=== PATIENT | female | born 1965 | race Caucasian/White ===

== ENCOUNTER 2025-01-13 06:28 | Inpatient (IN) | payer SELFPAY, OTHER ==
[2025-01-09 14:38] LABS: Urine Bacteria None Seen /hpf (None Seen)
[2025-01-09 14:41] LABS: Basophils # (auto) 0.1 10 ^3/uL (0-0.2); Basophils % (auto) 0.8 % (0.0-2.0); Eosinophils # (auto) 0.2 10 ^3/uL (0-0.8); Eosinophils % (auto) 2.4 % (0.0-7.0); Hematocrit 39.2 % (36.0-46.0); Hemoglobin 13.4 g/dL (12.2-16.2); Lymphocytes # (auto) 2.3 10 ^3/uL (0.4-5.4); Lymphocytes % (auto) 32.2 % (10.0-50.0); Mean Corpuscular Hemoglobin 31.1 pg (28.0-32.0); Mean Corpuscular Hgb Conc. 34.1 g/dL (32.0-36.0); Mean Corpuscular Volume 91.3 fL (80.0-100.0); Monocytes # (auto) 0.5 10 ^3/uL (0-1.3); Monocytes % (auto) 7.3 % (0.0-12.0); Neutrophils # (auto) 4.1 10 ^3/uL (1.6-8.6); Neutrophils % (auto) 57.3 % (37.0-80.0); Platelet Count (auto) 282 10^3/uL (140-450); Red Cell Distribution Width 13.1 % (11.8-14.3); White Blood Cell 7.2 10^3/uL (4.4-10.8)
[2025-01-09 14:57] LABS: INR 0.96 (0.9-1.15); Partial Thromboplastin Time 29.6 SEC (24.5-34.5); Prothrombin Time 10.2 sec (9.3-11.8)
[2025-01-09 15:00] LABS: Alanine Aminotransferase 22 U/L (7-40); Alkaline Phosphatase 65 U/L (46-116); Anion Gap 6 (5-15); Aspartate Aminotransferase 19 U/L (13-40); BUN/Creatinine Ratio 22.5 (10.0-20.0); Bilirubin, Total 0.8 mg/dL (0.2-1.0); Blood Urea Nitrogen 16 mg/dL (9-23); Calcium 10.3 mg/dL (8.7-10.4); Carbon Dioxide 29 mmol/L (20-31); Chloride 104 mmol/L (98-107); Glucose 94 mg/dL (74-106); Potassium 4.1 mmol/L (3.5-5.1); Sodium 139 mmol/L (136-145); Total Protein 7.5 g/dL (5.7-8.2)
[2025-01-09 15:05] LABS: Albumin 4.9 g/dL (3.2-4.8)
[2025-01-09 15:25] LABS: Urine Blood 1+ /uL (Negative); Urine Clarity Clear (Clear); Urine Color Yellow (Yellow); Urine Hyaline Cast FEW /lpf (0 - 2); Urine Protein, UAD Negative (Negative); Urine Specific Gravity 1.026 (1.001-1.035); Urine Squamous Epithelial Cell FEW /hpf (<5); Urine Urobilinogen Normal (Negative); Urine WBC 8 /HPF (0-5); Urine pH 6.5 (5.0-9.0)
[~2025-01-13] VITALS: Ht 162.6 cm; Wt 82.7 kg
[2025-01-13] VITALS (9 sets, daily range): BP systolic 106–115; BP diastolic 61–67; PULSE 73–83; RESP 12–18; TEMP 97.7–98.3; O2SAT 89–100
[~2025-01-13 06:28] MED LIST: AMLO1TAB23 PO; LISI40TA16 PO
[2025-01-13] MEDS ORDERED: KETOROLAC TROMETH 30 MG/ML 1ML VIAL ONE (06:52)
[2025-01-13] MEDS ORDERED: MORPHINE SULF PF 5 MG/10 ML VIAL ONE (06:52)
[2025-01-13] MEDS: PREGABALIN CAPSULE 75 MG CAP PO ONE (07:15)
[2025-01-13] MEDS: ACETAMINOPHEN IV 1000 MG/100ML (10MG/ML) IV ONE (07:15)
[2025-01-13] MEDS ORDERED: HYDROmorphone HCL 2 MG/ML VL/or syr ONE (07:16)
[2025-01-13] MEDS ORDERED: ONDANSETRON HCL 4 MG/2 ML VIAL ONE (07:16)
[2025-01-13] MEDS ORDERED: LIDOCAINE 2% (LOCAL ANESTH.) PF 5ml SDV ONE (07:16)
[2025-01-13] MEDS ORDERED: fentaNYL CITRATE 100 MCG/2 ML VL ONE ×2 (07:16→08:30)
[2025-01-13] MEDS ORDERED: DexAMETHasone SOD PHOS 10MG/1ML VIAL INJ ONE (07:16)
[2025-01-13] MEDS ORDERED: MIDAZOLAM HCL 2MG/2ML 2ml VIAL (1mg/ml) ONE (07:16)
[2025-01-13] MEDS ORDERED: KETAMINE 50mg/ML 1ml syringe ONE (07:16)
[2025-01-13] MEDS ORDERED: GLYCOPYRROLATE 0.2 MG/ML 1ML VIAL ONE (07:16)
[2025-01-13] MEDS ORDERED: ONDANSETRON HCL 4 MG/2 ML VIAL IV PRN (08:00)
[2025-01-13] MEDS ORDERED: ceFAZolin 1GM/50ML 50 ML IV SCH (08:00)
[2025-01-13] MEDS ORDERED: NITROGLYCERIN 0.4 MG SL TAB SL PRN (08:00)
[2025-01-13] MEDS ORDERED: HYDROmorphone HCL 2 MG/ML VL/or syr IV PRN (08:00)
[2025-01-13] MEDS ORDERED: ACETAMINOPHEN 325 MG TAB PO PRN (08:00)
[2025-01-13] MEDS ORDERED: MORPHINE SULFATE INJ 2 MG/ml SYRG IV PRN (08:00)
[2025-01-13] MEDS: ONDANSETRON HCL 4 MG/2 ML VIAL IV ONE (09:15)
[2025-01-13] MEDS: TRANEXAMIC ACID 20 ML ONE (09:28)
[2025-01-13] MEDS: BUPIVACAINE W/ EPINEPH 0.5% INJ 50ML MDV IJ ONE (09:28)
[2025-01-13] MEDS: CELECOXIB 100 MG CAP PO ONE (09:28)
[2025-01-13] MEDS: VANCOMYCIN HCL 1000 MG VL ONE (09:28)
[2025-01-13] MEDS: ceFAZolin 2 GM/D5W50ml 50 ML IV ONE (09:29)
[2025-01-13] MEDS: HYDROmorphone HCL 2 MG/ML VL/or syr IV PRN (09:35)
[2025-01-13] MEDS: LACTATED RINGER'S 1,000 ML IV SCH (09:38)
[2025-01-13] MEDS: amLODIPine BESYLATE 5 MG TAB PO SCH (09:54)
[2025-01-13] MEDS: LISINOPRIL 20 MG TAB PO SCH (09:55)
[2025-01-13] MEDS: DOCUSATE SOD 100 MG CAP PO SCH (11:25)
[2025-01-13] MEDS: CEFEPIME 1GM/ 50ML 50 ML IV SCH (11:25)
[2025-01-13] MEDS: HYDROcodone-ACET 5/325MG TAB PO PRN (11:33)
--- NOTE | 2025-01-13 12:29 | DVH ---
Indication: sp Right DIEGO Technique: Single-view pelvis Comparison: None FINDINGS/IMPRESSION: Total right hip arthroplasty in anatomic alignment. 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 Exp ected postoperative changes surrounding the right hip joint including soft tissue emphysema, edema.
--- NOTE | 2025-01-13 12:44 | DVHHP2 ---
Review of Systems Allergies: Coded Allergies: NO KNOWN ALLERGIES (Unverified , 07/06/16) Medications Current Medications Medications Dose Ordered Sig/Abdelrahman Route Start Time Stop Time Status Last Admin Dose Admin Patient Own Medication 10 mg QPM PO 01/13/25 18:00 UNV Patient Own Medication 40 mg QAM PO 01/14/25 07:00 UNV Cefepime HCl 50 ml @ 12.5 mls/hr DAILY IV 01/13/25 10:00 01/13/25 11:25 12.5 MLS/HR Lactated Ringer's 1,000 ml @ 100 mls/hr Q10H IV 01/13/25 08:00 01/13/25 09:38 100 MLS/HR Sodium Chloride 10 ml Q8HR IV 01/13/25 14:00 Acetaminophen 650 mg Q6HP PRN PO 01/13/25 08:00 Acetaminophen/ Hydrocodone Bitart 1 tab Q4HP PRN PO 01/13/25 08:00 01/13/25 11:33 1 TAB Hydromorphone HCl 1 mg Q2HP PRN IV 01/13/25 08:00 Ondansetron HCl 4 mg Q6HP PRN IV 01/13/25 08:00 Docusate Sodium 100 mg Q12HR PO 01/13/25 10:00 01/13/25 11:25 100 MG Nitroglycerin 0.4 mg Q5MINP PRN SL 01/13/25 08:00 Morphine Sulfate 2 mg Q30M PRN IV 01/13/25 08:00 Amlodipine Besylate 10 mg DAILY PO 01/13/25 10:00 Lisinopril 40 mg DAILY PO 01/13/25 10:00 Cefazolin Sodium 50 ml @ 50 mls/hr Q6H IV 01/13/25 14:00 01/14/25 02:59 Exam Vital Signs Vital Signs Date Time Temp Pulse Resp B/P (MAP) Pulse Ox O2 Delivery O2 Flow Rate FiO2 01/13/25 11:53 67 12 100/64 (76) 99 01/13/25 09:35 Nasal Cannula 2.0 99 01/13/25 09:08 97.1 97.1 Labs/Xrays Labs Test 01/09/25 14:30 Range/Units White Blood Count 7.2 4.4-10.8 10^3/uL Red Blood Count 4.30 4.0-5.20 10^6/uL Hemoglobin 13.4 12.2-16.2 g/dL Hematocrit 39.2 36.0-46.0 % Mean Corpuscular Volume 91.3 80.0-100.0 fL Mean Corpuscular Hemoglobin 31.1 28.0-32.0 pg Mean Corpuscular Hemoglobin Concent 34.1 32.0-36.0 g/dL Red Cell Distribution Width 13.1 11.8-14.3 % Platelet Count 282 140-450 10^3/uL Mean Platelet Volume 8.1 6.9-10.8 fL Neutrophils (%) (Auto) 57.3 37.0-80.0 % Lymphocytes (%) (Auto) 32.2 10.0-50.0 % Monocytes (%) (Auto) 7.3 0.0-12.0 % Eosinophils (%) (Auto) 2.4 0.0-7.0 % Basophils (%) (Auto) 0.8 0.0-2.0 % Neutrophils # (Auto) 4.1 1.6-8.6 10 ^3/uL Lymphocytes # (Auto) 2.3 0.4-5.4 10 ^3/uL Monocytes # (Auto) 0.5 0-1.3 10 ^3/uL Eosinophils # (Auto) 0.2 0-0.8 10 ^3/uL Basophils # (Auto) 0.1 0-0.2 10 ^3/uL Nucleated Red Blood Cells 0.0 % Prothrombin Time 10.2 9.3-11.8 sec Prothrombin Time INR 0.96 0.9-1.15 Activated Partial Thromboplast Time 29.6 24.5-34.5 SEC Urine Color Yellow Yellow Urine Clarity Clear Clear Urine pH 6.5 5.0-9.0 Urine Specific [place] 1.026 1.001-1.035 Urine Protein Negative Negative Urine Ketones Negative Negative Urine Blood 1+ H Negative /uL Urine Nitrite Negative Negative Urine Bilirubin Negative Negative Urine Urobilinogen Normal Negative mg/dL Urine Leukocyte Esterase 1+ Negative /uL Urine RBC 9 0 - 4 /hpf Urine Microscopic WBC 8 H 0-5 /HPF Urine Squamous Epithelial Cells Few <5 /hpf Urine Bacteria None seen None Seen /hpf Urine Hyaline Casts Few 0 - 2 /lpf Urine Glucose Normal Normal mg/dL Sodium Level 139 136-145 mmol/L Potassium Level 4.1 3.5-5.1 mmol/L Chloride Level 104 98-107 mmol/L Carbon Dioxide Level 29 20-31 mmol/L Anion Gap 6 5-15 Blood Urea Nitrogen 16 9-23 mg/dL Creatinine 0.71 0.550-1.02 mg/dL Glomerular Filtration Rate Calc 96 >90 mL/min BUN/Creatinine Ratio 22.5 H 10.0-20.0 Serum Glucose 94 74-106 mg/dL Calcium Level 10.3 8.7-10.4 mg/dL Total Bilirubin 0.8 0.2-1.0 mg/dL Aspartate Amino Transferase (AST) 19 13-40 U/L Alanine Aminotransferase (ALT) 22 7-40 U/L Alkaline Phosphatase 65 46-116 U/L Total Protein 7.5 5.7-8.2 g/dL Albumin 4.9 H 3.2-4.8 g/dL Assessment/Plan Assessment/Plan see dictated note Plan discussed with: Patient My Orders Orders - CAR MAGALLON MD Procedure Category Date Status Time Hydromorphone PHA 01/13/25 Verified Injection (Dilaudid 12:45 Complete Blood Count LAB 01/14/25 Verified 06:00 Comprehensive LAB 01/14/25 Verified Metabolic Panel 06:00 Date of Service: January 13, 2025 Billing Provider: CAR MAGALLON MD Common Visit Codes: [id number] INP/OBS CARE (HIGH) CAR MAGALLON MD January 13, 2025 12:44
--- NOTE | 2025-01-13 13:40 | DVHHP ---
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 The patient at this time denies any significant pain. No chest pain. No shortness of breath. No nausea or vomiting. REVIEW OF SYSTEMS: Otherwise negative. PAST MEDICAL HISTORY: Significant for hypertension. MEDICATIONS: She takes lisinopril and amlodipine. ALLERGIES: No known drug allergies. SOCIAL HISTORY: Denies smoking or alcohol. Lives at home with her fiance. FAMILY HISTORY: Negative. PHYSICAL EXAMINATION: GENERAL: The patient is awake and alert. VITAL SIGNS: Temperature of 97.1, pulse 81 per minute, blood pressure 100/64. SHEENT: Unremarkable. There is no JVD. No pedal edema. LUNGS: Equal bilaterally. No added sounds. CARDIOVASCULAR: S1, S2 is regular. No murmurs. ABDOMEN: Soft. There is no organomegaly. NEUROLOGIC: Nonfocal. MUSCULOSKELETAL: There is a dressing at the site of the right hip surgery. ASSESSMENT AND PLAN: * Hypertension for which the patient's blood pressure medications will be held and blood pressure will be monitored. * Status post right hip surgery for DJD of the hip. The patient will be placed on pain medication and receive physical therapy. MD YONATAN Jack/TJ TID: [id number] RECEIPT: [id number]
[2025-01-13] MEDS: SODIUM CHLOR 0.9% PF (SALINE LOCK) 10ML VIAL/SYR IV SCH (14:38)
[2025-01-13] MEDS: ceFAZolin 1GM/50ML 50 ML IV SCH (14:38)
[2025-01-13] MEDS ORDERED: PATIENTS OWN MEDICATION (Amlodipine Besylate 10 MG) PO SCH (18:00)
[2025-01-14] VITALS (8 sets, daily range): BP systolic 98–127; BP diastolic 59–71; PULSE 53–89; RESP 16–20; TEMP 97.6–98.4; O2SAT 91–98
[2025-01-14] MEDS: HYDROmorphone HCL 2 MG/ML VL/or syr IV PRN (04:20)
[2025-01-14 06:41] LABS: Basophils # (auto) 0 10 ^3/uL (0-0.2); Basophils % (auto) 0.3 % (0.0-2.0); Eosinophils # (auto) 0 10 ^3/uL (0-0.8); Eosinophils % (auto) 0.4 % (0.0-7.0); Hematocrit 28.2 % (36.0-46.0); Hemoglobin 9.7 g/dL (12.2-16.2); Lymphocytes # (auto) 1.6 10 ^3/uL (0.4-5.4); Lymphocytes % (auto) 22.5 % (10.0-50.0); Mean Corpuscular Hemoglobin 31.6 pg (28.0-32.0); Mean Corpuscular Hgb Conc. 34.4 g/dL (32.0-36.0); Monocytes # (auto) 0.7 10 ^3/uL (0-1.3); Monocytes % (auto) 9.8 % (0.0-12.0); Neutrophils # (auto) 4.6 10 ^3/uL (1.6-8.6); Platelet Count (auto) 222 10^3/uL (140-450); Red Blood Cells 3.06 10^6/uL (4.0-5.20); Red Cell Distribution Width 13.1 % (11.8-14.3); White Blood Cell 6.9 10^3/uL (4.4-10.8)
[2025-01-14 06:59] LABS: Alanine Aminotransferase 35 U/L (7-40); Albumin 3.6 g/dL (3.2-4.8); Alkaline Phosphatase 52 U/L (46-116); Anion Gap 7 (5-15); Aspartate Aminotransferase 33 U/L (13-40); BUN/Creatinine Ratio 27.3 (10.0-20.0); Blood Urea Nitrogen 15 mg/dL (9-23); Carbon Dioxide 28 mmol/L (20-31); Chloride 107 mmol/L (98-107); Potassium 4.2 mmol/L (3.5-5.1); Sodium 142 mmol/L (136-145)
[2025-01-14 07:00] LABS: Bilirubin, Total 0.6 mg/dL (0.2-1.0)
[2025-01-14] MEDS ORDERED: PATIENTS OWN MEDICATION (Lisinopril 40 MG) PO SCH (07:00)
--- NOTE | 2025-01-14 07:01 | DVHOP2 ---
Operative Report - 2 Report Details Date: 01/13/25 Preop Diagnosis: Right hip osteoarthritis Postop Diagnosis: Right hip osteoarthritis Surgeon: Jb Macias DO/ Israel Ayala MD Washer Engineer: Trung MORALES Anesthesiologist: Von MITTAL Anesthesia: Regional Implant: [place] G7 50 mm cup three screws DUal mobilitiy 40 mm Head 28/0 M/L Taper 7.5 extended offset stem Consent: The patient was informed of the risks and benefits of the procedure. These include but are not limited to complications of anesthesia, postoperative infection, incomplete relief of symptoms, recurrence of symptoms, damage to blood vessels, nerves and tendons, deep venous thrombosis, pulmonary embolism and possible need for repeat surgery in the future. Estimated Blood Loss: 300 cc Indications for Surgery: end stage right hip osteoarthritis Name of Procedure Performed Right total hip arthroplasty Procedure Details Procedure Details: INDICATION: This patient has failed non-operative treatments for hip arthritis and is now indicated for a total hip replacement. Preoperatively in the waiting area as well as in the office, I had a long discussion with the patient regarding the plan, the expected outcome, the risks, benefits, and alternatives of surgery. The risks include, but are not limited to, infection (which may require future surgery and removal of implants) , bleeding (which may require a transfusion), damage to nerves, arteries, veins, tendons, muscles and other adjacent structures. Also discussed the possibilities of dislocation, leg-length discrepancy, intraoperative fractures, implant loosening, heterotopic bone formation, and revision for variety of reasons, and medical complications etc. This was discussed at length and consent has been obtained. DESCRIPTION OF PROCEDURE: In the preoperative holding area, the consent was reviewed and the a ppropriate extremity was verified by the patient and marked with my initials. The patient was then transferred to the operating theatre. Appropriate anesthetia was induced. All bony prominences were well padded. A time out was performed verifying the side and site of surgery according to standard protocol. Preoperative antibiotics were given. Tranexamic acid was given. The patient was then placed in the lateral decubitus position and fixed with rigid pelvic fixation. All bony prominences were well padded and an axillary roll was placed. The affected hip area was then prepped and draped in the usual sterile fashion. We made a standard posterolateral incision sharply through the skin and carried our dissection down through subcutaneous tissue to the underlying fascia achieving hemostasis where necessary. We incised the fascia in line with our incision. We identified and protected the sciatic nerve. We took down the external rotators and hip capsule from their insertion into the greater trochanter, tagged them and retracted them posteriorly for further protection of the sciatic nerve. A check point was placed into the greater trochanter and the hip center and leg length length were registered. We then dislocated the femoral head and performed an osteotomy of the femoral neck in accordance with our pre-operative plan. The labrum was excised with a long-handle knife, and we exposed the acetabular rim and cotyloid fossa. We then reamed up to our final size in accordance with the preoperative plan. We copiously irrigated and then impacted the final cup into position. We confirmed the position with the robotic navigation guidance. We placed two acetabular dome screws into the posterior-superior quadrant in the usual fashion. We irrigated the cup and impacted the liner, checking to make sure it was well seated. Attention was then turned to the femur. We used a box osteotome followed by a canal finder to gain entry to the canal. Intramedullary contents were suctioned and care was taken to ensure they did not touch the tissues. We sequentially reamed until good cortical contact, then broached up to out final size. We trialed with the appropriate femoral neck and head and reduced the hip. The hip was taken through a full range of motion. The hip soft tissues were examined in extension and external rotation, the anterior capsule and IT band were palpated, and combined anteversion was determined to be 40 degrees. The hip was stable at maximum flexion, at 90 degrees of flexion and 45 degrees of internal rotation and the position of sleep. Leg lengths were restored as shown using the computer navigation, and the trial LTC matched preoperative and intraoperative templating. The hip was then dislocated and trial components removed. We copiously irrigated the wound and impacted the final femoral stem into position. The femoral head was impacted onto a clean and dry trunion and confirmed to be seated. The hip was reduced ensuring to tissues in the acetabular cup. We again brought it through a full functional range of motion and there was no evidence for dislocation, instability, or impingement. The checkpoint was removed. A dilute betadine solution (17.5mL in 500mL saline) was used to wash the joint and left to sit for 3 minutes. This was then irrigated out with copious amounts of pulse lavage. We sprinkled 1g vancomycin powder below the fascia and 1g above the fascia. We copiously irrigated the wound and soft tissues. The short external rotators and capsule were repaired to the greater trochanter through dr ill holes, and the quadratus was repaired. We palpated the sciatic nerve in continuity without tension. The fascia was closed with vicryl and a barbed suture. We closed over the fascia with vicryl suture and re-approximated the skin with monocryl. A sterile dressing was placed. We returned the patient to the supine position. We verified all lower extremity compartments were soft and compressible and that we had intact distal pulses and checked our leg length religious. We took an AP Pelvis in the operating room, which we reviewed prior to transfer. The patient was then transferred to the recovery room in stable condition. Condition Good Disposition Still a Patient ISRAEL AYALA MD January 14, 2025 07:01
[2025-01-14 07:06] LABS: Calcium 8.5 mg/dL (8.7-10.4); Glucose 110 mg/dL (74-106); Total Protein 5.3 g/dL (5.7-8.2)
--- NOTE | 2025-01-14 07:56 | DVHPN2 ---
Progress Note Date Seen: January 14, 2025 Medical Necessity Reason Pt with a Central, PICC or Fol: No Subjective Patient reports: No new complaints Objective vital signs Vital Sign Date Time Temp Pulse Resp B/P (MAP) Pulse Ox O2 Delivery O2 Flow Rate FiO2 01/14/25 05:00 98.0 66 18 123/66 (85) 98 98.0 01/13/25 20:00 Room Air* 0 21 Total Intake and Output 01/13/25 01/13/25 01/14/25 15:00 23:00 07:00 Intake Total 390 ml 600 ml Balance 390 ml 600 ml medications Current Medications Medications Dose Ordered Sig/Abdelrahman Route Start Time Stop Time Status Last Admin Dose Admin Patient Own Medication 10 mg QPM PO 01/13/25 18:00 UNV Patient Own Medication 40 mg QAM PO 01/14/25 07:00 UNV Cefepime HCl 50 ml @ 12.5 mls/hr DAILY IV 01/13/25 10:00 01/13/25 11:25 12.5 MLS/HR Lactated Ringer's 1,000 ml @ 100 mls/hr Q10H IV 01/13/25 08:00 01/14/25 04:21 100 MLS/HR Sodium Chloride 10 ml Q8HR IV 01/13/25 14:00 01/14/25 05:22 10 ML Acetaminophen 650 mg Q6HP PRN PO 01/13/25 08:00 Acetaminophen/ Hydrocodone Bitart 1 tab Q4HP PRN PO 01/13/25 08:00 01/13/25 20:36 1 TAB Ondansetron HCl 4 mg Q6HP PRN IV 01/13/25 08:00 Docusate Sodium 100 mg Q12HR PO 01/13/25 10:00 01/13/25 22:24 100 MG Nitroglycerin 0.4 mg Q5MINP PRN SL 01/13/25 08:00 Morphine Sulfate 2 mg Q30M PRN IV 01/13/25 08:00 Hydromorphone HCl 1 mg Q3HP PRN IV 01/13/25 12:45 01/14/25 04:20 1 MG Examination: GENERAL:Normal, MSK:Abnormal laboratory and microbiology Laboratory Tests 01/14/25 04:46 Test 01/14/25 04:46 Range/Units Serum Glucose 110 H 74-106 mg/dL Problem List/Assessment/Plan Problem List/Assessment/Plan 60 year old female who is s/p Right DIEGO POD 1 1. Pain control 2. WBAT RLE 3. Physical therapy with posterior hip precautions 4. DVT ppx 5. Discussed discharge planning likely for tomorrow Plan discussed with: Patient Date of Service: January 14, 2025 Billing Provider: DANIELA AYALA MD Common Visit Codes: NOT BILLABLE VIKTORIA PIERCE NP January 14, 2025 07:56
--- NOTE | 2025-01-14 11:04 | DVHPN2 ---
Progress Note Date Seen: January 14, 2025 Medical Necessity Reason Pt with a Central, PICC or Fol: No Subjective Patient reports: No new complaints Review of Systems: HEENT:Normal, CVS:Normal, RESPIRATORY:Normal, GI:Normal, :Normal, MSK:Normal, NEURO:Normal Objective vital signs Vital Sign Date Time Temp Pulse Resp B/P (MAP) Pulse Ox O2 Delivery O2 Flow Rate FiO2 01/14/25 10:12 68 18 126/72 01/14/25 09:25 97.9 98 97.9 01/14/25 08:00 Room Air* 0 21 Total Intake and Output 01/13/25 01/13/25 01/14/25 15:00 23:00 07:00 Intake Total 390 ml 600 ml Balance 390 ml 600 ml medications Current Medications Medications Dose Ordered Sig/Abdelrahman Route Start Time Stop Time Status Last Admin Dose Admin Patient Own Medication 10 mg QPM PO 01/13/25 18:00 UNV Patient Own Medication 40 mg QAM PO 01/14/25 07:00 UNV Cefepime HCl 50 ml @ 12.5 mls/hr DAILY IV 01/13/25 10:00 01/14/25 08:44 12.5 MLS/HR Lactated Ringer's 1,000 ml @ 100 mls/hr Q10H IV 01/13/25 08:00 01/14/25 04:21 100 MLS/HR Sodium Chloride 10 ml Q8HR IV 01/13/25 14:00 01/14/25 05:22 10 ML Acetaminophen 650 mg Q6HP PRN PO 01/13/25 08:00 Acetaminophen/ Hydrocodone Bitart 1 tab Q4HP PRN PO 01/13/25 08:00 01/14/25 08:44 1 TAB Ondansetron HCl 4 mg Q6HP PRN IV 01/13/25 08:00 Docusate Sodium 100 mg Q12HR PO 01/13/25 10:00 01/14/25 08:44 100 MG Nitroglycerin 0.4 mg Q5MINP PRN SL 01/13/25 08:00 Morphine Sulfate 2 mg Q30M PRN IV 01/13/25 08:00 Hydromorphone HCl 1 mg Q3HP PRN IV 01/13/25 12:45 01/14/25 10:12 1 MG Examination: GENERAL:Normal, HEENT:Normal, NECK:Normal, LUNGS:Normal, CVS:Normal, ABDOMEN:Normal, MSK:Normal, MSK:Abnormal (right hip dressing), SKIN:Normal, NEURO:Normal, :Normal laboratory and microbiology Laboratory Tests 01/14/25 04:46 Test 01/14/25 04:46 Range/Units Serum Glucose 110 H 74-106 mg/dL Problem List/Assessment/Plan Problem List/Assessment/Plan * Hypertension for which the patient's blood pressure medications will be held and blood pressure will be monitored. * anemia * Status post right hip surgery for DJD of the hip. The patient will be placed on pain medication and receive physical therapy. advance care planning- full code- time spent 18mins Plan discussed with: Patient My Orders My Orders Orders - CAR MAGALOLN MD Procedure Category Date Status Time Hydromorphone PHA 01/13/25 In Process Injection (Dilaudid 12:45 Date of Service: January 14, 2025 Billing Provider: CAR MAGALLON MD Common Visit Codes: [id number] INP/OBS CARE(HIGH) Secondary Visit Codes: [id number] CARE PLAN 30 MINUTES CAR MAGALLON MD January 14, 2025 11:04
--- NOTE | 2025-01-14 19:48 | DVH ---
XY R HIP COMPLETE XRAY, 01/14/2025 at 7:04 p.m. INDICATION: POST OP HIP REPLACEMENT AND PT HEARD POPPING SOUND TECHNICAL DATA: Frontal and frog lateral views were obtained of the right hip.] COMPARISON: None FINDINGS: Right hip arthroplasty which appears to be anatomical position. No right hip fracture is identified. The right sacroiliac joint appears normal. The left hip joint appears normal. IMPRESSION: 1. No acute fracture or dislocation 2. Right hip arthroplasty which appears in anatomical position.
[2025-01-15] VITALS (7 sets, daily range): BP systolic 110–133; BP diastolic 62–66; PULSE 78–90; RESP 16–19; TEMP 97.7–98.6; O2SAT 91–97
[2025-01-15 07:30] LABS: Hematocrit 27.8 % (36.0-46.0); Hemoglobin 9.5 g/dL (12.2-16.2)
--- NOTE | 2025-01-15 08:13 | DVHPN2 ---
Progress Note Date Seen: January 15, 2025 Medical Necessity Reason Pt with a Central, PICC or Fol: No Subjective Patient reports: No new complaints Objective vital signs Vital Sign Date Time Temp Pulse Resp B/P (MAP) Pulse Ox O2 Delivery O2 Flow Rate FiO2 01/15/25 05:00 98.3 90 18 118/62 (80) 92 98.3 01/14/25 20:00 Room Air* 0 21 Total Intake and Output 01/14/25 01/14/25 01/15/25 15:00 23:00 07:00 Intake Total 500 ml Balance 500 ml medications Current Medications Medications Dose Ordered Sig/Abdelrahman Route Start Time Stop Time Status Last Admin Dose Admin Patient Own Medication 10 mg QPM PO 01/13/25 18:00 UNV Patient Own Medication 40 mg QAM PO 01/14/25 07:00 UNV Cefepime HCl 50 ml @ 12.5 mls/hr DAILY IV 01/13/25 10:00 01/14/25 08:44 12.5 MLS/HR Lactated Ringer's 1,000 ml @ 100 mls/hr Q10H IV 01/13/25 08:00 01/14/25 13:29 100 MLS/HR Sodium Chloride 10 ml Q8HR IV 01/13/25 14:00 01/15/25 06:09 10 ML Acetaminophen 650 mg Q6HP PRN PO 01/13/25 08:00 Acetaminophen/ Hydrocodone Bitart 1 tab Q4HP PRN PO 01/13/25 08:00 01/15/25 07:51 1 TAB Ondansetron HCl 4 mg Q6HP PRN IV 01/13/25 08:00 Docusate Sodium 100 mg Q12HR PO 01/13/25 10:00 01/14/25 21:48 100 MG Nitroglycerin 0.4 mg Q5MINP PRN SL 01/13/25 08:00 Morphine Sulfate 2 mg Q30M PRN IV 01/13/25 08:00 Hydromorphone HCl 1 mg Q3HP PRN IV 01/13/25 12:45 01/15/25 03:36 1 MG Examination: GENERAL:Normal, MSK:Abnormal laboratory and microbiology Laboratory Tests 01/15/25 06:50 01/14/25 04:46 Test 01/14/25 04:46 Range/Units Serum Glucose 110 H 74-106 mg/dL Problem List/Assessment/Plan Problem List/Assessment/Plan 60 year old female who is s/p Right DIEGO POD 1 1. Pain control 2. WBAT RLE 3. Physical therapy with posterior hip precautions 4. DVT ppx 5. Discussed discharge planning for SNF as patient is going to require additional PT and assistance, clear for discharge from orthopedic standpoint with the following recommendations 6. follow up at [facility] ortho clinic in 2 weeks POSTOPERATIVE Posterior Total Hip INSTRUCTIONS Activity: 1. You can bear as much weight as you tolerate on your hip unless specifically instructed otherwise. You may use the walking aid which you were discharged with and switch to a cane whenever you feel comfortable doing so. You should use an assistive device until you can walk comfortably without it. Keep in mind that every patient moves at their own speed of recovery so take your time. 2. A physical therapist will visit you at home. 3. Although guarantees against a dislocation do not exist, the hip was noted to be sufficiently stable in surgery. Below are motions that you should dischargenot do for 4-6 weeks, depending on the surgical approach used. If there are questions, please call the office. a. Bend forward past 90 degrees b. Sit on a regular low chair, couch, car seat etc... c. Cross your legs d. Use a regular low toilet seat. e. Sleep on your stomach or on either side. 3. High impact activity such as jumping, aerobics, tennis, and skiing are not permitted during the first 3 months after surgery. These activities can contribute to accelerated wear and should be done with caution after this time. Discuss this with your surgeon if you have questions. 4. Although a bath or whirlpool is NOT permitted during the first 2-3 weeks, you may shower as soon as you get home from the hospital provided you are able to keep your bandage clean and dry and there is no wound drainage. If you are unable to place a secured covering over your bandage bed bath/sponge bath may likely be the more appropriate option. 5. Swimming is not permitted until the wound is healed, which typically occurs approximately 3-4 weeks after surgery. Wound Management: If the wound is draining please change the gauze pad on the wound until it stops. If drainage persists past 10 days please notify our office. If there is a sticky gel dressing over your wound, you may leave this in place for as long as it is clean and dry. If it becomes loose or causes skin irritation, it is OK to remove it and place clean gauze over your wound. 1. You might notice some bruising around the surgical site, this is normal. 2. Check your temperature on a daily basis. Please note that a low-grade temp below 101 is not uncommon after surgery especially during the first 3 days. Notify the office if your temperature spikes above 101.5 after the 3rd post- operative date. 3. Many patients experience significant swelling in the thigh, this may extend below the knee and sometimes to the ankle. Swelling increases during the first week and subsides during the following week. 4. Provided you have been on a blood thinner since surgery and have been up and about at least three times per day, the risk of a blood clot is low and this swelling is an expected part of recovery. It will largely or completely resolve by your first post-operative visit. 5. Steven, if present, will be removed at 2 weeks during initial post-op visit. Medications: 1. You will be discharged with pain medication, Aspirin as a blood thinner and sometimes an anti-inflammatory medication such as Celebrex or Mobic might be prescribed. Please follow the instructions regarding these medicines as provided by your nurse at the hospital. 2. Narcotic pain medication has side effects, including constipation. Please ensure you continue to take stool softeners (Colace, Senna) while taking your pain medication to help protect against constipation. Getting up and moving around at least a few times per day helps with this also. 3. Lovenox 40 Sq x 12 days followed by one regular strength 325 mg coated aspirin daily for 4 weeks after surgery. Then, take one baby aspirin, 81 mg daily for 6 weeks more. A major, yet preventable, complication of Orthopaedic Surgery is a blood clot (DVT). It is important not to miss any doses of this important medication. 4. You should restart all of your prescription medications once discharged unless specifically instructed otherwise. 5. Herbal supplements may be restarted 2 weeks after surgery. Miscellaneous issues: 1. Driving is not permitted within the first 2 weeks. 2. Your first postoperative visit will take place 2weeks after discharge. Please call the office to arrange this appointment. 3. Antibiotic preventative treatment is required before dental or other invasive procedures. Please ask your surgeon about this at your first postoperative visit. Your hip replacement contains metal which may activate metal detectors. You may wish to carry a letter from your surgeon to communicate this to security personnel. If you experience chest pain, shortness of breath or severe painful calf swelling, go to the nearest emergency room to be evaluated. Please call our office once your situation is stabilized. Plan discussed with: Patient Date of Service: January 15, 2025 Billing Provider: DANIELA AYALA MD Common Visit Codes: NOT BILLABLE VIKTORIA PIERCE NP January 15, 2025 08:13
--- NOTE | 2025-01-15 10:53 | DVHPN2 ---
Progress Note Date Seen: January 15, 2025 Medical Necessity Reason Pt with a Central, PICC or Fol: No Subjective Patient reports: No new complaints Review of Systems: HEENT:Normal, CVS:Normal, RESPIRATORY:Normal, GI:Normal, :Normal, MSK:Normal, NEURO:Normal Objective vital signs Vital Sign Date Time Temp Pulse Resp B/P (MAP) Pulse Ox O2 Delivery O2 Flow Rate FiO2 01/15/25 09:45 88 16 114/62 01/15/25 09:01 98.6 94 98.6 01/15/25 08:00 Room Air* 0 21 Total Intake and Output 01/14/25 01/14/25 01/15/25 15:00 23:00 07:00 Intake Total 500 ml Balance 500 ml medications Current Medications Medications Dose Ordered Sig/Abdelrahman Route Start Time Stop Time Status Last Admin Dose Admin Patient Own Medication 10 mg QPM PO 01/13/25 18:00 UNV Patient Own Medication 40 mg QAM PO 01/14/25 07:00 UNV Cefepime HCl 50 ml @ 12.5 mls/hr DAILY IV 01/13/25 10:00 01/15/25 09:13 12.5 MLS/HR Lactated Ringer's 1,000 ml @ 100 mls/hr Q10H IV 01/13/25 08:00 01/14/25 13:29 100 MLS/HR Sodium Chloride 10 ml Q8HR IV 01/13/25 14:00 01/15/25 06:09 10 ML Acetaminophen 650 mg Q6HP PRN PO 01/13/25 08:00 Acetaminophen/ Hydrocodone Bitart 1 tab Q4HP PRN PO 01/13/25 08:00 01/15/25 07:51 1 TAB Ondansetron HCl 4 mg Q6HP PRN IV 01/13/25 08:00 Docusate Sodium 100 mg Q12HR PO 01/13/25 10:00 01/15/25 09:13 100 MG Nitroglycerin 0.4 mg Q5MINP PRN SL 01/13/25 08:00 Morphine Sulfate 2 mg Q30M PRN IV 01/13/25 08:00 Hydromorphone HCl 1 mg Q3HP PRN IV 01/13/25 12:45 01/15/25 09:15 1 MG Examination: GENERAL:Normal, HEENT:Normal, NECK:Normal, LUNGS:Normal, CVS:Normal, ABDOMEN:Normal, MSK:Normal, MSK:Abnormal (right hip dressing), SKIN:Normal, NEURO:Normal, :Normal laboratory and microbiology Laboratory Tests 01/15/25 06:50 01/14/25 04:46 Test 01/14/25 04:46 Range/Units Serum Glucose 110 H 74-106 mg/dL Problem List/Assessment/Plan Problem List/Assessment/Plan * Hypertension for which the patient's blood pressure medications will be held and blood pressure will be monitored. * anemia * Status post right hip surgery for DJD of the hip. The patient will be placed on pain medication and receive physical therapy. advance care planning- full code- time spent 18mins Plan discussed with: Patient My Orders My Orders Orders - CAR MAGALLON MD Procedure Category Date Status Time Lactated Ringers 1000 PHA 01/15/25 Verified mL 11:00 * Compressed Yeast Supervisor CONS 01/15/25 Verified Consult Date of Service: January 15, 2025 Billing Provider: CAR MAGALLON MD Common Visit Codes: [id number] INP/OBS CARE(HIGH) CAR MAGALLON MD January 15, 2025 10:53
[2025-01-15] MEDS ORDERED: LACTATED RINGER'S 1,000 ML IV SCH (11:00)
[2025-01-15] MEDS: HYDROmorphone HCL 2 MG/ML VL/or syr IV PRN (16:09)
[2025-01-16 01:00] VITALS: BP 136/73; PULSE 80; RESP 18; TEMP 98.7; O2SAT 96
[2025-01-16 05:00] VITALS: BP 115/69; PULSE 81; RESP 16; TEMP 98.7; O2SAT 95
[2025-01-16 07:08] LABS: Hematocrit 25.9 % (36.0-46.0); Hemoglobin 8.9 g/dL (12.2-16.2)
[2025-01-16 08:00] VITALS: RESP 16
[2025-01-16 08:40] VITALS: BP 120/68; PULSE 80; RESP 18; TEMP 98.6; O2SAT 97
[2025-01-16 12:30] VITALS: BP 154/89; PULSE 78; RESP 17; TEMP 98.5; O2SAT 100
--- NOTE | 2025-01-16 15:00 | DVHDS2 ---
Discharge Summary Date of Admission January 13, 2025 at 07:58 Date of Discharge: January 16, 2025 Labs/Diagnostic Data: Laboratory Results Test 01/16/25 06:32 01/14/25 04:46 01/09/25 14:30 Hemoglobin 8.9 g/dL (12.2-16.2) Hematocrit 25.9 % (36.0-46.0) White Blood Count 6.9 10^3/uL (4.4-10.8) Red Blood Count 3.06 10^6/uL (4.0-5.20) Mean Corpuscular Volume 92.0 fL (80.0-100.0) Mean Corpuscular Hemoglobin 31.6 pg (28.0-32.0) Mean Corpuscular Hemoglobin Concent 34.4 g/dL (32.0-36.0) Red Cell Distribution Width 13.1 % (11.8-14.3) Platelet Count 222 10^3/uL (140-450) Mean Platelet Volume 8.5 fL (6.9-10.8) Neutrophils (%) (Auto) 67.0 % (37.0-80.0) Lymphocytes (%) (Auto) 22.5 % (10.0-50.0) Monocytes (%) (Auto) 9.8 % (0.0-12.0) Eosinophils (%) (Auto) 0.4 % (0.0-7.0) Basophils (%) (Auto) 0.3 % (0.0-2.0) Neutrophils # (Auto) 4.6 10 ^3/uL (1.6-8.6) Lymphocytes # (Auto) 1.6 10 ^3/uL (0.4-5.4) Monocytes # (Auto) 0.7 10 ^3/uL (0-1.3) Eosinophils # (Auto) 0 10 ^3/uL (0-0.8) Basophils # (Auto) 0 10 ^3/uL (0-0.2) Nucleated Red Blood Cells 0.0 % Sodium Level 142 mmol/L (136-145) Potassium Level 4.2 mmol/L (3.5-5.1) Chloride Level 107 mmol/L (98-107) Carbon Dioxide Level 28 mmol/L (20-31) Anion Gap 7 (5-15) Blood Urea Nitrogen 15 mg/dL (9-23) Creatinine 0.55 mg/dL (0.550-1.02) Glomerular Filtration Rate Calc 104 mL/min (>90) BUN/Creatinine Ratio 27.3 (10.0-20.0) Serum Glucose 110 mg/dL (74-106) Calcium Level 8.5 mg/dL (8.7-10.4) Total Bilirubin 0.6 mg/dL (0.2-1.0) Aspartate Amino Transferase (AST) 33 U/L (13-40) Alanine Aminotransferase (ALT) 35 U/L (7-40) Alkaline Phosphatase 52 U/L (46-116) Total Protein 5.3 g/dL (5.7-8.2) Albumin 3.6 g/dL (3.2-4.8) Prothrombin Time 10.2 sec (9.3-11.8) Prothrombin Time INR 0.96 (0.9-1.15) Activated Partial Thromboplast Time 29.6 SEC (24.5-34.5) Urine Color Yellow (Yellow) Urine Clarity Clear (Clear) Urine pH 6.5 (5.0-9.0) Urine Specific [place] 1.026 (1.001-1.035) Urine Protein Negative (Negative) Urine Ketones Negative (Negative) Urine Blood 1+ /uL (Negative) Urine Nitrite Negative (Negative) Urine Bilirubin Negative (Negative) Urine Urobilinogen Normal mg/dL (Negative) Urine Leukocyte Esterase 1+ /uL (Negative) Urine RBC 9 /hpf (0 - 4) Urine Microscopic WBC 8 /HPF (0-5) Urine Squamous Epithelial Cells Few /hpf (<5) Urine Bacteria None seen /hpf (None Seen) Urine Hyaline Casts Few /lpf (0 - 2) Urine Glucose Normal mg/dL (Normal) Other Laboratory Tests 01/16/25 06:32 01/14/25 04:46 Brief Hx & Hospital Course: SEE DICTATED NOTE Condition at Discharge: Good Final Diagnosis/Problems List Right hip osteoarthritis Discharge Disposition: Home Discharge Instruct/Medications Diet: Cardiac 2g Na,low cholest Activity: No Restrictions, As Tolerated Follow Up/Referral: SOWMYA MCCLAIN PCP/ORTHO Medications: RESUME HOME MEDS' MEDS PER ORTHO Discharge Statement: "Patient was advised to return to the ER or call 911 if any headaches, dizziness, shortness of breath, chest pain, abdominal pain, bleeding, fevers, or worsening of medical condition. Patient was counseled about treatment plan, medications, possible side effects, patientverbalized understanding. All questions were answered to the best of my ability. This discharge took greater then 30 minutes in planning, reviewing documentation, counseling the patient, and discussing with other team members." ASSESSMENT ASSESSMENT Assessment Right hip osteoarthritis Date of Service: January 16, 2025 Billing Provider: CAR MAGALLON MD Common Visit Codes: 38859-OCG/OBS DISCH DAY >30min CAR MAGALLON MD January 16, 2025 15:00
--- NOTE | 2025-01-16 16:59 | DVHDS ---
DATE OF DISCHARGE: 01/16/2025 HISTORY OF PRESENT ILLNESS: The patient is a 60-year-old lady who was admitted after she underwent surgery on the right hip for DJD of the hip. She has previous history of hypertension. HOSPITAL COURSE: The patient was seen by Orthopedics. Hemoglobin at the time of discharge is 8.9. The patient has now been ambulating with physical therapy. She will be discharged home to have home physical therapy and will be on medications as per Orthopedics. She will follow up with the primary and/or with the orthopedic clinic. FINAL DIAGNOSES: Therefore: * Hypertension. * Anemia. * Status post right hip surgery for DJD of the hip. Time spent in discharge planning and review of plan with the patient and nursing was 37 minutes. MD YONATAN Jack/ANDRES TID: [id number] RECEIPT: [id number]
[2025-01-16 17:06] VITALS: BP 148/63; PULSE 83; RESP 19; TEMP 98; O2SAT 97
== END 2025-01-16 17:00 | disposition home or self-care (01) | DRG 470 ==
LOC: SUR 06:28 → OVERFLOW 07:58 → WEST WING 14:15
PROVIDERS: ADMIT Internal Medicine; ATTEND Internal Medicine
PROC: 0SR90JZ Replacement of Right Hip Joint with Synthetic Substitute, Open Approach (ICD-10-PCS; principal; 2025-01-13 07:33)
DX: M16.11 Unilateral primary osteoarthritis, right hip (principal); R71.0 Precipitous drop in hematocrit; I10 Essential (primary) hypertension
CPT/HCPCS: 36415; 72170; 73502; 80053; 81001; 85014; 85018; 85025; 85610; 85730; 86850; 86900; 86901; 97110; 97116; 97163; 97530; A4565; G0378; J0131; J1100; J1885; J2003; J2250; J2405

== ENCOUNTER 2025-01-16 19:08 | Emergency (ER) | payer OTHER, SELFPAY ==
[~2025-01-16] VITALS: Ht 162.6 cm; Wt 68.0 kg
--- NOTE | 2025-01-16 19:34 | ED.PDOC ---
Musculoskeletal HPI Comments 60y F who presents to the ED for chief complaint of lower extremity pain. Pt states she had R hip replacement 3 days ago here by Dr. Ayala. Pt states 2 days ago she started to have pain in her R knee which has progressively worsened . When patient arrived home today, patient's daughter noted that both lower extremities were swollen. Pt in the ED, states she been having pain in both lower extremities, however she has been ambulating as directed. Pt rates the pain 10/10, constant, with no noted relieving factors. Pt otherwise states she has been taking oxycodone for the pain and states she last took oxycodone 1 hour ago with minimal relief. Pt otherwise has stable vitals with BP of 98.4F, rr 19, 02 sat of 96% on room air, BP of 108/64 and heart rate of 97. Pt otherwise denies any other symptoms at this time. Time Seen by MD: 19:27 Reviewed Notes: Medications, Allergies Allergies: Coded Allergies: NO KNOWN ALLERGIES (Unverified , 07/06/16) Home Meds Reported Medications Amlodipine Besylate (Amlodipine Besylate) 10 Mg Tab, 10 MG PO QPM, TAB 01/09/25 Lisinopril (Lisinopril) 40 Mg Tab, 40 MG PO QAM, TAB 01/09/25 Information Source: Patient Mode of Arrival: Wheelchair Brought in by: family Past Medical History PAST MEDICAL HISTORY: HTN Past Medical History (Other): Intestinal polyp, history of GI bleed Surgical History (Other): L hip replacement [employer] History: No Pertinent [employer] History Family History Family History: Reviewed,noncontributory to illness Social History Smoker: Non-Smoker Alcohol: Occasionally Drugs: Denies Drug Use Lives In: Home Constitutional: denies: chills, diaphoresis, fatigue, fever, malaise, sweats, weakness, others EENTM: denies: blurred vision, double vision, ear bleeding, ear discharge, ear drainage, ear pain, ear ringing, eye pain, eye redness, hearing loss, mouth pain, mouth swelling, nasal discharge, nose bleeding, nose congestion, nose pain, photophobia, tearing, throat pain, throat swelling, voice changes, others Respiratory: denies: cough, hemoptysis, orthopnea, SOB at rest, shortness of breath, SOB with excertion, stridor, wheezing, others Cardiovascular: denies: chest pain, dizzy spells, diaphoresis, Dyspnea on exertion, edema, irregular heart beat, left arm pain, lightheadedness, palpitations, PND, syncope, others Gastrointestinal: denies: abdomen distended, abdominal pain, blood streaked bowels, constipated, diarrhea, dysphagia, difficulty swallowing, hematemesis, melena, nausea, poor appetite, poor fluid intake, rectal bleeding, rectal pain, vomiting, others Genitourinary: denies: abnormal vagina bleeding, burning, dyspareunia, dysuria, flank pain, frequency, hematuria, incontinence, pain, , vagina discharge, urgency, others Neurological: denies: dizziness, fainting, headache, left sided numbness, left sided weakness, numbness, paresthesia, pre-existing deficit, right sided numbness, right sided weakness, seizure, speech problems, tingling, tremors, weakness, others Musculoskeletal: reports: joint pain (R hip); denies: back pain, gout, joint swelling, muscle pain, muscle stiffness, neck pain, others Integumetry: denies: bruises, change in color, change in hair/nails, dryness, laceration, lesions, lumps, rash, wounds, others Allergic/Immunocompromised: denies: Difficulty Healing, Frequent Infections, Hives, Itching, others Hematologic/Lymphatic: denies: anemia, blood clots, easy bleeding, easy bruising, swollen glands, others Endocrine: denies: excessive hunger, excessive sweating, excessive thirst, excessive urination, flushing, intolerance to cold, intolerance to heat, unexplained weight gain, unexplained weight loss, others Psychiatric: denies: anxiety, bipolar disorder, depression, hopeless, panic disorder, schizophrenia, sleepless, suicidal, others All Other Systems: Reviewed and Negative Physical Exam General Appearance: No Apparent Distress HEENT: Other (Pupils and face symmetric. Moist mucous membranes.) Neck: Full Range of Motion, Normal Inspection Respiratory: Lungs Clear, No Accessory Muscle Use, No Respiratory Distress, Normal Breath Sounds Cardiovascular: No JVD, Regular Rate/Rhythm Breast Exam: Deferred Gastrointestinal: Non Tender, Soft Genitalia: Deferred Pelvic: Deferred Rectal: Deferred Extremities: Leg edema (1+ bilateral pedal and leg edema), Pedal edema, Other (Right knee diffuse mild soft tissue tenderness and soft tissue swelling without erythema or discoloration. Right hip wound dressing in place without discharge.) Neurologic: Alert (Oriented x4), Normal Affect, Normal Mood, Other (Moves all extremities.) Cerebellar Function: NOT DONE Reflexes: NOT DONE Skin: Dry, Normal Color, Warm Lymphatic: NOT DONE Was a procedure done? Was a procedure done?: No Differential Diagnosis EXT Differential Diagnosis: Cellulitis, Deep Vein Thrombosis, DJD, Neurovascular injury, Arthritis, Bursitis X-Ray, Labs, Meds, VS Vital Signs Date Time Temp Pulse Resp B/P (MAP) Pulse Ox O2 Delivery O2 Flow Rate FiO2 01/16/25 20:37 85 16 123/72 (89) 94 01/16/25 19:35 98.4 97 19 108/64 (79) 97 98.4 [place] [address] Ph: [phone] DIAGNOSTIC IMAGING Diagnostic Imaging Report : [id number] Signed PATIENT: EDMOND SAMANIEGO ACCT: [id number] UNIT: [id number] : 1965 LOC: ER ROOM / BED: / AGE / SEX: 60 / F ADM STATUS: REG ER SERVICE 22 ORDERING PHYSICIAN: STEVE MCKEON MD PROCEDURE(s): BLDVT - BiLat Lower DVT REASON: BLE edema/pain s/p R hip replacement ORDER NUMBER(s): [id number], ACCESSION NUMBER(s): [id number] Bilateral lower extremity venous duplex Clinical History: BLE edema/pain s/p R hip replacement Comparison: None Technique: Duplex Doppler evaluation of the deep venous systems of both lower extremities from the common femoral veins to the popliteal veins including color Doppler and spectral/pulsed waveform analysis was performed. Findings: RIGHT SIDE: The common femoral vein demonstrates appropriate compressibility and waveform variability. There is compressibility/patency of the great saphenous vein at the proximal thigh. The femoral vein demonstrates appropriate compressibility and waveform variability. The deep femoral vein demonstrates appropriate compressibility and waveform variability. The popliteal vein demonstrates appropriate compressibility and waveform variability. There is normal compressibility at the tibioperoneal trunk. LEFT SIDE: The common femoral vein demonstrates appropriate compressibility and waveform variability. There is compressibility/patency of the great saphenous vein at the proximal thigh. The femoral vein demonstrates appropriate compressibility and waveform variability. The deep femoral vein demonstrates appropriate compressibility and waveform variability. The popliteal vein demonstrates appropriate compressibility and waveform variability. There is normal compressibility at the tibioperoneal trunk. Impression: 1. No right or left femoropopliteal venous thrombosis. 2. 3.4 cm avascular anechoic structure left inguinal area. ATED BY: MAYTE SARMIENTO Jr., DO DICTATED DATE/TIME: 01/16/252023 SIGNED BY: MAYTE SARMIENTO Jr., SIGNED DATE/TIME: 01/16/252023 CC: X-Ray, Labs, Meds, VS Comment 60-year-old female with a history of hypertension and recent right hip replacement presenting with right knee pain and bilateral leg edema Vitals unremarkable Exam remarkable for right knee diffuse soft tissue tenderness and soft tissue sw elling, bilateral leg and foot 1+ edema Rhythm strip independently interpreted by me: Sinus rhythm, rate 97, no ectopy. Bilateral lower extremity ultrasound negative for DVT Patient treated with the following in the ED: Dilaudid 1 mg IM, Zofran ODT 4 mg p.o. with improvement of her pain. Patient appears stable for discharge with close outpatient follow-up with her orthopedist, who she was advised to contact in the morning for re-evaluation. Continue current pain medications (oxycodone) as directed. Time of 1ST Reevaluation: 20:00 Reevaluation 1ST: Unchanged Time of 2ND Reevaluation: 21:00 Reevaluation 2ND: Improved Patient Education/Counseling: Diagnosis, Treatment Family Education/Counseling: No Family Present Departure 1 Departure Time of Disposition: 21:00 Impression: Primary Impression: Right knee pain Additional Impression: Bilateral lower extremity edema Disposition: 01 HOME / SELF CARE / HOMELESS Condition: Stable Referrals: DANIELA AYALA MD Additional Instructions: Your ultrasound did not show any evidence of blood clots. Continue current pain medication as needed. Contact Dr. Ayala tomorrow morning for re-evaluation. Discharged With: Relative Critical Care Note Critical Care Time?: No Stability Stability form required: No Heart Score Heart Score: Heart Score Response (Comments) Value History N/A 0 EKG N/A 0 Age N/A 0 Risk Factors N/A 0 Troponin N/A 0 Total 0 I personally scribed for STEVE MCKEON MD (BARRYALBERTO) on 01/16/25 at 19:34. Electronically submitted by Barbara Hearn ([facility] I personally scribed for STEVE MCKEON MD (BARRYALBERTO) on 01/16/25 at 20:36. Electronically submitted by Barbara Hearn ([facility]). STEVE MCKEON MD January 16, 2025 19:34
[2025-01-16 19:35] VITALS: TEMP 98.4
--- NOTE | 2025-01-16 20:26 | DVH ---
Bilateral lower extremity venous duplex Clinical History: BLE edema/pain s/p R hip replacement Comparison: None Technique: Duplex Doppler evaluation of the deep venous systems of both lower extremities from the common femora l veins to the popliteal veins including color Doppler and spectral/pulsed waveform analysis was perf ormed. Findings: RIGHT SIDE: The common femoral vein demonstrates appropriate compressibility and waveform variability. There is compressibility/patency of the great saphenous vein at the proximal thigh. The femoral vein demonstrates appropriate compressibility and waveform variability. The deep femoral vein demonstrates appropriate compressibility and waveform variability. The popliteal vein demonstrates appropriate compressibility and waveform variability. There is normal compressibility at the tibioperoneal trunk. LEFT SIDE: The common femoral vein demonstrates appropriate compressibility and waveform variability. There is compressibility/patency of the great saphenous vein at the proximal thigh. The femoral vein demonstrates appropriate compressibility and waveform variability. The deep femoral vein demonstrates appropriate compressibility and waveform variability. The popliteal vein demonstrates appropriate compressibility and waveform variability. There is normal compressibility at the tibioperoneal trunk. Impression: 1. No right or left femoropopliteal venous thrombosis. 2. 3.4 cm avascular anechoic structure left inguinal area.
[2025-01-16 20:37] VITALS: PULSE 85; RESP 16; O2SAT 94
[2025-01-16] MEDS: ONDANSETRON ODT 4 MG TAB PO ONE (20:44)
[2025-01-16 20:46] VITALS: BP 123/72; PULSE 85; RESP 16
[2025-01-16] MEDS: HYDROmorphone HCL 2 MG/ML VL/or syr IM ONE (20:46)
== END 2025-01-16 21:09 | disposition home or self-care (01) ==
LOC: ER 19:08
DX: M25.561 Pain in right knee (principal); R60.0 Localized edema; I10 Essential (primary) hypertension; F10.90 Alcohol use, unspecified, uncomplicated; Y90.9 Presence of alcohol in blood, level not specified; Z98.890 Other specified postprocedural states; Z87.19 Personal history of other diseases of the digestive system; Z96.642 Presence of left artificial hip joint
CPT/HCPCS: 93970; 96372; 99285; J1171